=== PATIENT | female | born 1975 | race Caucasian/White ===

== ENCOUNTER 2022-08-24 15:37 | Emergency (ER) | payer OTHER ==
[~2022-08-24] VITALS: Ht 167.6 cm; Wt 93.3 kg
[2022-08-24] MEDS ORDERED: HYDR12.55 PO (15:53)
[2022-08-24] MEDS ORDERED: LEVO2TA PO (15:53)
[2022-08-24 18:32] VITALS: BP 172/82; TEMP 98.4; O2SAT 98
== END 2022-08-24 18:34 | disposition home or self-care (01) ==
LOC: M ED 15:37
DX: S63.601A Unspecified sprain of right thumb, initial encounter (principal); X58.XXXA Exposure to other specified factors, initial encounter; Y92.009 Unspecified place in unspecified non-institutional (private) residence as the place of occurrence of the external cause; Y93.89 Activity, other specified; Z88.8 Allergy status to other drugs, medicaments and biological substances